=== PATIENT | female | born 1990 | race Two or more races ===

== ENCOUNTER 2019-04-04 02:12 | Emergency (ER) | payer MEDICAID ==
[~2019-04-04] VITALS: Ht 165.1 cm; Wt 64.4 kg
--- NOTE | 2019-04-04 02:24 | NUR ---
PT BIBSELF. AAOX4. AMBULATORTY. C/O COUGH AND CONGESTION X 2 DAYS. PT EGYPTIAN SPEAKING USING RENEA TO TRANSLATE IN [place]. RR EVEN AND UNLABORED. PT COUGHING. NO ACUTE DISTRESS NOTED.
--- NOTE | 2019-04-04 02:38 | NUR ---
XRAY AT BEDSIDE
--- NOTE | 2019-04-04 03:02 | NUR ---
Patient is resting comfortably in bed. Easily aroused. Watching videos on her phone
--- NOTE | 2019-04-04 04:12 | NUR ---
Patient discharged to home in stable condition. Written and verbal after care instructions given. Patient verbalizes understanding of instruction. pt ambulatory with a steady gait
[2019-04-04 04:19] VITALS: BP 128/64
== END 2019-04-04 04:10 | disposition home or self-care (01) ==
LOC: ER 02:15
DX: R05 Cough (principal); R07.89 Other chest pain; Z60.2 Problems related to living alone
CPT/HCPCS: 71046

== ENCOUNTER 2019-05-21 20:01 | Emergency (ER) | payer MEDICAID ==
[~2019-05-21] VITALS: Ht 167.6 cm; Wt 55.8 kg
[2019-05-21 22:50] VITALS: BP 126/68
--- NOTE | 2019-05-21 22:50 | NUR ---
PT AAOX4. AMBULATORY. BIBS C/O FLU LIKE SYMPTOMS X3DAYS, +DRY COUGH, +SORE THROAT. MD AT BEDSIDE FOR SAMEER.
--- NOTE | 2019-05-21 22:58 | NUR ---
PT BROUGHT FOR XRAY
[2019-05-21] MEDS ORDERED: ACETAMINOPHEN W/ CODEINE#3 1 EA TABLET PO ONE (23:00)
[2019-05-21] MEDS ORDERED: ACETAMINOPHEN W/ CODEINE#3 1 EA TABLET ONE (23:01)
[2019-05-21] MEDS ORDERED: ACETAMINOPHEN ES 500 MG TABLET ONE (23:05)
--- NOTE | 2019-05-21 23:26 | NUR ---
Patient discharged to home in stable condition. Written and verbal after care instructions given. Patient verbalizes understanding of instruction and RX in [place]ian.
[2019-05-21] MEDS ORDERED: ACETAMINOPHEN 325 MG TABLET PO ONE (23:30)
== END 2019-05-21 23:26 | disposition home or self-care (01) ==
LOC: ER 20:03
DX: R05 Cough (principal); Z60.2 Problems related to living alone
CPT/HCPCS: 71046

== ENCOUNTER 2021-03-15 09:58 | Emergency (ER) | payer MEDICAID ==
[~2021-03-15] VITALS: Ht 165.1 cm; Wt 59.0 kg
--- NOTE | 2021-03-15 10:18 | NUR ---
BIB SELF C/O UPPER BACK RADIATES TO L ARM AND NECK PAIN STARTED LAST NIGHT. DENIES TRAUMA. NO APPARENT DEFORMITIES NOTED. THE PATIENT RATES PAINS 10/10. WILL CONTINUE TO MONITOR THE PATIENT.
[2021-03-15] MEDS ORDERED: KETOROLAC TROMETHAMINE 15 MG/ML VIAL ONE (10:57)
[2021-03-15] MEDS ORDERED: KETOROLAC TROMETHAMINE INJ 60 MG/2 ML VIAL IM ONE (11:00)
[2021-03-15] MEDS ORDERED: CYCL5TAB PO (12:16)
[2021-03-15] MEDS ORDERED: IBUP-1955 PO (12:16)
[2021-03-15 12:42] VITALS: BP 116/67
--- NOTE | 2021-03-15 12:42 | NUR ---
Patient discharged to home in stable condition. Written and verbal after care instructions given. Patient verbalizes understanding of instruction.
== END 2021-03-15 12:43 | disposition home or self-care (01) ==
LOC: ER 10:04
DX: M54.6 Pain in thoracic spine (principal); Z60.2 Problems related to living alone
CPT/HCPCS: 71045; 93005; 96372; 99283; J1885

== ENCOUNTER 2021-05-16 07:17 | Emergency (ER) | payer MEDICAID ==
[~2021-05-16] VITALS: Ht 167.6 cm; Wt 54.9 kg
[~2021-05-16 07:17] MED LIST: CYCL5TAB PO; IBUP-1955 PO
--- NOTE | 2021-05-16 09:34 | NUR ---
BIBS FOR C/O HEADACHE 09/19 AND LOWER BACK PAIN 07/20 S/P TRIP AND HITTING BACK OF HEAD ON A CHAIR, C/O N/V. ACCIDENT HAPPENED 05/12/21. VITALS ARE WITHIN NORMAL LIMITS. BREATHING IS EVEN AND UNLABORED, NO SOB NOTED.
[2021-05-16] MEDS ORDERED: MECLIZINE HCL 12.5 MG TABLET PO ONE (10:00)
[2021-05-16] MEDS ORDERED: ACETAMINOPHEN 325 MG TABLET PO ONE (10:00)
[2021-05-16] MEDS ORDERED: MECLIZINE HCL 25 MG TABLET ONE (10:43)
[2021-05-16] MEDS ORDERED: ACETAMINOPHEN 325 MG TABLET ONE (10:43)
--- NOTE | 2021-05-16 10:45 | NUR ---
COVID ANTIGEN SWAB DONE AND SENT TO THE LAB
--- NOTE | 2021-05-16 10:45 | NUR ---
URINE COLLECTED AND SENT TO THE LAB
[2021-05-16] MEDS ORDERED: ACET-73 PO (11:42)
[2021-05-16 11:49] VITALS: BP 112/71
--- NOTE | 2021-05-16 11:49 | NUR ---
Patient discharged to home in stable condition. Written and verbal after care instructions given. Patient verbalizes understanding of instruction.
== END 2021-05-16 11:49 | disposition home or self-care (01) ==
LOC: ER 07:21
DX: S06.9X9A Unspecified intracranial injury with loss of consciousness of unspecified duration, initial encounter (principal); R40.2142 Coma scale, eyes open, spontaneous, at arrival to emergency department; R40.2362 Coma scale, best motor response, obeys commands, at arrival to emergency department; R40.2252 Coma scale, best verbal response, oriented, at arrival to emergency department; W19.XXXA Unspecified fall, initial encounter; Y92.89 Other specified places as the place of occurrence of the external cause; B34.9 Viral infection, unspecified; Z20.822 Contact with and (suspected) exposure to COVID-19; B00.1 Herpesviral vesicular dermatitis
CPT/HCPCS: 70450; 84703; 87426; 99284; C9803; J8597

== ENCOUNTER 2022-04-10 20:07 | Emergency (ER) | payer MEDICAID ==
[~2022-04-10] VITALS: Ht 162.6 cm; Wt 52.2 kg
[~2022-04-10 20:07] MED LIST changes: +ACET-73 PO
[2022-04-10 21:00] VITALS: BP 103/69
[2022-04-10] MEDS ORDERED: BENZ200C53 PO (22:22)
[2022-04-10] MEDS ORDERED: ACET-3117 PO (22:22)
[2022-04-10] MEDS ORDERED: ACETAMINOPHEN 325 MG TABLET ONE ×2 (22:25→22:27)
[2022-04-10] MEDS ORDERED: ACETAMINOPHEN 325 MG TABLET PO ONE (22:30)
== END 2022-04-11 00:31 | disposition home or self-care (01) ==
LOC: ER 20:10
DX: B34.9 Viral infection, unspecified (principal); R05.9 Cough, unspecified; Z60.2 Problems related to living alone; Z79.899 Other long term (current) drug therapy

== ENCOUNTER 2024-05-15 21:37 | Emergency (ER) | payer MEDICAID, OTHER ==
[~2024-05-15] VITALS: Ht 162.6 cm; Wt 52.2 kg
[~2024-05-15 21:37] MED LIST changes: +ACET-3117 PO; +BENZ200C53 PO
[2024-05-16] MEDS ORDERED: AZIT250T13 PO (00:51)
[2024-05-16 02:07] VITALS: BP 125/79; TEMP 98.7; O2SAT 100
== END 2024-05-16 02:07 | disposition home or self-care (01) ==
LOC: ER 21:42
DX: B34.9 Viral infection, unspecified (principal); R05.8 Other specified cough; R07.9 Chest pain, unspecified; R06.02 Shortness of breath
CPT/HCPCS: 71045-TC